=== PATIENT | female | born 1950 | race Caucasian/White ===

== ENCOUNTER → 2017-04-23 | Outpatient (CLI) | payer MEDICARE, OTHER ==
--- NOTE | 2017-04-23 14:11 | MRI ---
Study: MRI of the Cervical Spine. Indication: CERVICALGIA Technique: Multiplanar, multi sequence MRI of the cervical spine was obtained without intravenous contrast. Comparison: None. Findings: Vertebral body height maintained. No marrow infiltrating lesion. Spinal cord normal in caliber and signal. Straightening cervical spine. Levocurvature upper thoracic spine suspected. C2-3: Moderate bilateral facet arthrosis. No stenosis. C3-C4: Mild disc space height loss and disc desiccation. 3.5 mm right eccentric disc bulge producing mild spinal canal narrowing, mid sagittal thecal sac diameter 9 mm. Moderate bilateral facet arthrosis with prominent right and mild left uncovertebral hypertrophy. Moderate to severe right and [id number] left neural foraminal narrowing. C4-C5: Moderate to severe disc space height loss and disc desiccation with a 3 mm disc bulge closely approximating the ventral spinal cord. Mild to moderate spinal canal narrowing, macrocephalic 8 mm. Moderate bilateral facet arthrosis and uncovertebral hypertrophy with moderate right and mild to moderate left neural foraminal narrowing. C5-C6: Moderate to severe disc space height loss and disc desiccation with 4 mm disc osteophyte complex producing mild to moderate spinal canal narrowing, mid sagittal thecal sac diameter 7.5 mm. Moderate right and mild left facet arthrosis and prominent bilateral uncovertebral hypertrophy. Severe bilateral neural foraminal narrowing. C6-C7: Moderate to severe disc space height loss and disc desiccation with a 3 mm right eccentric disc bulge. Mild spinal canal narrowing, mid sagittal thecal sac diameter 9 mm. Moderate left and mild right facet arthrosis and moderate bilateral uncovertebral hypertrophy. Moderate to severe left and moderate right neural foraminal narrowing. C7-T1: Moderate to severe disc space height loss and disc desiccation 3.5 mm left eccentric disc osteophyte complex with mild spinal canal narrowing, mid sagittal thecal sac diameter 9 mm. Mild bilateral facet arthrosis and moderate bilateral uncovertebral hypertrophy with mild to moderate bilateral neural foraminal narrowing. Impression: Multilevel cervical disc disease most pronounced at C5-C6 where there is mild to moderate spinal canal narrowing and severe bilateral neural foraminal narrowing. Additional findings as above. Electronically signed by: Niko Salazar MD 04/23/2017 2:10 PM CDT Workstation: [id number]
--- NOTE | 2017-04-23 14:35 | MRI ---
Study: MRI of the Lumbar Spine. Indication: LOW BACK PAIN Technique: Multiplanar, multi sequence MRI of the lumbar spine was obtained without intravenous contrast. Comparison: None. Findings: The designated L5-S1 disc space level is visualized on axial T2 image 3. Vertebral body height maintained. Conus medullaris unremarkable. L1-L2: Unremarkable L2-L3: Moderate to severe disc space height loss and disc desiccation with patchy Modic type II endplate changes and anterior osteophyte formation. 4 mm left eccentric disc bulge. No stenosis. Mild bilateral facet arthrosis. L3-L4: Moderate to severe disc space height loss and disc desiccation with a 4 mm left eccentric disc bulge and moderate bilateral facet arthrosis. Mild right and moderate left lateral recess narrowing. No spinal canal narrowing or neural foraminal narrowing. L4-L5: Trace retrolisthesis. Moderate to severe posterior disc space height loss and disc desiccation. 5 mm disc bulge and moderate bilateral facet arthrosis. Indentation ventral thecal sac with moderate spinal canal narrowing, mid sagittal thecal sac diameter 7 mm. Moderate ligament flavum buckling. No neural foraminal narrowing. Moderate bilateral lateral recess narrowing. L5-S1: Moderate to severe disc space height loss and disc desiccation with a 3.5 mm disc osteophyte complex and moderate bilateral facet arthrosis. Mild bilateral lateral recess narrowing. No spinal canal narrowing or neural foraminal narrowing. Impression: Multilevel lumbar disc disease most pronounced at L4-L5 where there is moderate spinal canal narrowing and moderate bilateral lateral recess narrowing. Additional findings as above. Electronically signed by: Niko Salazar MD 04/23/2017 2:34 PM CDT Workstation: [id number]
== END | disposition home or self-care (01) ==
LOC: MRI 10:13
PROVIDERS: ATTEND Nurse Practitioner Family
DX: M54.5 Low back pain (principal); M54.2 Cervicalgia

== ENCOUNTER → 2017-05-03 | Outpatient (CLI) | payer MEDICARE, OTHER ==
--- NOTE | 2017-05-03 10:35 | CT ---
EXAM DESCRIPTION: CTA Chest CLINICAL HISTORY: 67 years, Female, ABN CXR COMPARISON: None TECHNIQUE: Rapid bolus administration of nonionicIV contrast was performed with thin-section axial scanning of the chest performed in a dynamic fashion. Reconstructed multiplanar and three dimensional MIP and VRT images created on a separate dedicated workstation were reviewed along with the source axial images and stored in the patient's medical record. This exam was performed according to our departmental dose-optimization program, which includes automated exposure control, adjustment of the mA and/or kV according to patient size and/or use of iterative reconstruction technique. FINDINGS: The lung joy are clear with mild dependent atelectasis in each posterior lower lung field without pleural effusions or dense consolidation. No pneumothorax or hemopneumothorax is noted. Bilateral breast implants overlie the anterolateral chest on each side. Small calcified granuloma in the peripheral right upper lobe is noted. Small granulomas on the left are noted as well. No evidence of filling defect or pulmonary embolus involving the right or left lung is seen and no pulmonary mass or consolidation is noted. Visualized hilar and mediastinal structures as well as the chest wall is otherwise unremarkable. IMPRESSION: 1. Negative CT pulmonary angiogram for pulmonary embolus. No filling defect or occlusive changes seen. 2. Small granulomatous calcifications in the both lung joy are benign in appearance and no further evaluation is noted. 3. Bilateral intact breast implants. 4. Essentially clear lung joy with mild dependent compressive atelectasis in each posterior lung base. Electronically signed by: Aramis Fernandez MD 05/03/2017 10:35 AM CDT
== END | disposition home or self-care (01) ==
LOC: CT 08:39
PROVIDERS: ATTEND Family Medicine
DX: R09.89 Other specified symptoms and signs involving the circulatory and respiratory systems (principal)

== ENCOUNTER 2017-07-30 15:28 | Emergency (ER) | payer MEDICARE, OTHER ==
--- NOTE | 2017-07-30 15:59 | ED.PDOC ---
History of Present Illness - General Time Seen by Provider: 07/30/17 15:36 Source: patient Exam Limitations: no limitations - History of Present Illness Initial Comments: the patient is a 67-year-old female presenting to the emergency room secondary to swelling over her left patella present for the last few days. She did fall about a week ago and had some generalized swelling of the knee that has since largely resolved. No significant pain with movement at this time. No erythema. No increased heat. Patellar tendon mechanism is working well. No difficulty with weightbearing. Timing/Duration: 1 week Severity: mild Improving Factors: nothing Worsening Factors: nothing Associated Symptoms: denies symptoms Review of Systems - Review of Systems Constitutional: States: no symptoms reported EENTM: States: no symptoms reported Respiratory: States: no symptoms reported Cardiology: States: no symptoms reported Gastrointestinal/Abdominal: States: no symptoms reported Genitourinary: States: no symptoms reported Musculoskeletal: States: see HPI Skin: States: no symptoms reported Neurological: States: no symptoms reported All other Systems: No Change from Baseline Physical Exam - Physical Exam General Appearance: Alert, Comfortable, No apparent distress Eye Exam: bilateral normal Ears, Nose, Throat: hearing grossly normal Neck: full range of motion Respiratory: no respiratory distress, no accessory muscle use Cardiovascular/Chest: normal peripheral pulses, no edema Peripheral Pulses: radial,right: 2+, radial,left: 2+, dorsalis pedis,right: 2+, dorsalis pedis,left: 2+ Rectal Exam: deferred Extremity: normal range of motion, non-tender, no pedal edema, no calf tenderness, normal capillary refill, other - left side there is some prepatellar bursa swelling Neurologic: no motor/sensory deficits, alert, normal mood/affect, oriented x 3 Skin Exam: normal color Progress - Progress Progress: 07/30/17 15:57 the patient is a 67-year-old female with left sided patellar bursitis. This is likely traumatic bursitis. I do not see any evidence of infection. Oral anti-inflammatories can be used as needed. ER warnings are given for any evidence of infection. 07/30/17 15:59 Departure - Departure Clinical Impression: Bursitis Qualifiers: Bursitis location: knee Knee bursitis location: prepatellar bursitis Laterality : left Qualified Code(s): M70.42 - Prepatellar bursitis, left knee Disposition: Discharge to Home or Self Care Condition: Fair Instructions: DI for Bursitis Diet: regular diet Activity: increase activity as tolerated Referrals: Aramis Mohr MD [Primary Care Provider] - 1-2 Weeks Additional Instructions: the patient is a 67-year-old female with left sided patellar bursitis. This is likely traumatic bursitis. I do not see any evidence of infection. Oral anti-inflammatories can be used as needed. ER warnings are given for any evidence of infection.
[2017-07-30 16:32] VITALS: BP 113/72; TEMP 98.5; O2SAT 96
== END 2017-07-30 16:20 | disposition home or self-care (01) ==
LOC: ER 15:28
DX: M70.42 Prepatellar bursitis, left knee (principal)

== ENCOUNTER → 2017-08-16 | Outpatient (CLI) | payer MEDICARE, OTHER | END | disposition home or self-care (01) | LOC: MAMMO 13:05 | PROVIDERS: ATTEND Family Medicine | DX: Z12.31 Encounter for screening mammogram for malignant neoplasm of breast (principal) | CPT/HCPCS: 77063; G0202 ==

== ENCOUNTER → 2017-10-09 | Outpatient (CLI) | payer MEDICARE, OTHER | END | disposition home or self-care (01) | LOC: GMAM 10:39 | PROVIDERS: ATTEND Family Medicine | DX: E03.9 Hypothyroidism, unspecified (principal); E55.9 Vitamin D deficiency, unspecified ==

== ENCOUNTER → 2018-04-24 | Outpatient (CLI) | payer MEDICARE, OTHER | LOC: GMAM 11:07 | PROVIDERS: ATTEND Family Medicine | DX: E03.9 Hypothyroidism, unspecified (principal); E55.9 Vitamin D deficiency, unspecified ==

== ENCOUNTER → 2018-08-12 | Outpatient (CLI) | payer MEDICARE, OTHER ==
--- NOTE | 2018-08-12 21:00 | MRI ---
EXAM DESCRIPTION: Lumbar Spine w/o Contrast : Magnetic Resonance Imaging. CLINICAL HISTORY: LUMBAR STENOSIS COMPARISON: MRI scan lumbar spine without contrast 04/23/2017. TECHNIQUE: Multiplanar, multiple standard sequences, non contrast MRI, lumbar spine. FINDINGS: L5-S1: Moderate disc space loss. Disc desiccation. Diffuse Modic type I endplate reactive changes in the midline into the left of midline. Tiny posterior bulge. Moderate hypertrophy of the flavum ligaments and facet arthrosis impressing on the thecal sac with moderate canal narrowing. Bilateral mild foraminal narrowing. L4-5: Disc desiccation and mild to moderate disc space loss increasing from midline to the right with Modic type I endplate reactive changes. Posterior mild broad-based disc bulge with hyperintense T2 signal annular fissure in the midline. Disc osteophyte complex bulge to the right with minimal foraminal narrowing. Moderate flavum ligament hypertrophy and facet arthrosis resulting in moderate to severe canal narrowing. Left foramen patent. L3-4: Moderate disc space loss more to the left of midline. Schmorl's node in the superior L4 endplate. Anterior disc bulge and marginal spurs. Posterior mild broad-based bulge. Moderate flavum ligament hypertrophy and facet arthrosis with mild to moderate canal narrowing. Bilateral foramina are patent. L2-3: Disc desiccation and moderate disc space loss to the left of midline with Modic type II endplate reactive changes disc osteophyte bulge anteriorly and to the left of midline with narrowing of the foramen. Posterior broad-based bulge. Posterior elements unremarkable. No significant canal narrowing. Schmorl's node in the superior L3 endplate. L1-2: Normal signal in the disc with disc space preserved. Posterior elements unremarkable. Canal and foramina are patent. Conus terminates at this level. T12-L1: Disc space preserved with normal signal in the disc. Canal and foramina are patent. Posterior elements are unremarkable. Focal areas of hyperintense T1 and T2 signal in the L1 and T12 vertebral bodies. L3-L5 levoscoliosis. T12-L2 dextroscoliosis less curvature. Reduced lumbar lordosis. Paravertebral soft tissues paraspinal muscle atrophy.. Otherwise normal marrow signal in the remaining vertebral bodies and the posterior elements. Vertebral bodies are not compressed at any level. IMPRESSION: 1. Multiple levels of flavum ligament hypertrophy and facet arthrosis, desiccated disc with bulging, anterior and unilateral spondylosis, and Schmorl's nodes. Multiple hemangiomas. Left lower lumbar scoliosis. Multiple levels of foraminal narrowing with no stenosis. No change since the prior study. 2. L4-5 disc with posterior annular fissure in the midline. Moderate to severe canal narrowing. Stable since the prior study. Electronically signed by: Kevin Clark MD 08/12/2018 8:59 PM CDT
--- NOTE | 2018-08-12 21:30 | MRI ---
EXAM DESCRIPTION: Cervical Spine high-field MRI CLINICAL HISTORY: CERVICAL STENOSIS COMPARISON: MRI cervical spine without contrast 04/23/2017. TECHNIQUE: Multiplanar MRI, multiple sequences, non-contrast High-field.. Cervical spine FINDINGS: C3-4: Disc desiccation with anterior bulging and spurs. Modic type II endplate reactive changes superiorly. Posterior midline disc bulge abutting the cord. Moderate canal narrowing. Right uncinate spur and neural foraminal stenosis. Left uncinate spur and moderate neural foraminal narrowing. Facets are negative. C4-5: Moderate disc space loss anterior bulging and spurs with disc desiccation. Posterior midline disc osteophyte bulge abutting the cord with borderline canal stenosis. Bilateral uncinate spurs and mild neural foraminal narrowing. Facets negative. C5-6: Disc desiccation moderate disc space loss. Anterior disc bulging and spurs. Posterior midline disc osteophyte bulge abutting the midline and right paracentral cord with mild canal stenosis. Right uncinate spur with neural foraminal stenosis. Left uncinate spur and mild neural foraminal narrowing. Bilateral facets are negative. C6-7: Disc desiccation and minimal disc space loss. Modic type II endplate reactive changes to the right of midline. Modic type III endplate reactive changes to the left of midline. Facet arthrosis more on the left than the right. Bilateral moderate foraminal narrowing more on the left. C7-T1: Modic type II endplate reactive changes, more to the left of midline. Posterior broad-based disc bulge abutting the cord. Mild to moderate canal narrowing. Uncinate spurs larger on the right than the left. Moderate right neural foraminal narrowing and mild left neural foraminal narrowing. T1-T2: Disc desiccation with posterior broad-based bulge. Bulge into the right foramen with mild to moderate narrowing. Mild canal narrowing. Left neuroforamen patent. Bilateral facets are negative. Normal signal in the C2-C3 disc with no bulging. Disc spaces preserved. Canal and neural foramina are patent. Facets are unremarkable. Spinal alignment shows kyphosis. Minimal cervical dextroscoliosis upper thoracic levoscoliosis.. No cord compression or cord edema. Atlantoaxial joint minimal arthrosis with stable hemangioma in the odontoid process.. Base of the cerebellar tonsils is at the level of the foramen magnum. Paravertebral soft tissues demonstrate normal-sized lymph nodes.. Vertebral bodies are not compressed at any level. Normal marrow signal in the remaining vertebral bodies and the posterior elements. IMPRESSION: 1. Multiple levels of spondylosis, disc degeneration and bulging, uncinate spur hypertrophy. 2. C3-4 with spondylosis posterior midline disc bulge. Right uncinate spur and neural foraminal stenosis. No change from the prior study. 3. Posterior bulging C4-5 disc and endplate marginal spurs resulting in borderline mild central canal stenosis. This is stable since the prior study. 4. Right uncinate spur and neural foraminal stenosis at C5-6. Disc osteophyte bulge to the right of midline abutting and possibly compressing the right paracentral cord with mild right paracentral canal stenosis. Unchanged since the prior study. 5. Bilateral spondylosis at C6-7 more prominent to the left of midline. No canal or neural foraminal stenosis. Electronically signed by: Kevin Clark MD 08/12/2018 9:28 PM CDT
== END ==
LOC: MRI 10:34
PROVIDERS: ATTEND Family Medicine
DX: M48.02 Spinal stenosis, cervical region (principal); M47.892 Other spondylosis, cervical region; M50.21 Other cervical disc displacement, high cervical region; M50.220 Other cervical disc displacement, mid-cervical region, unspecified level; M48.061 Spinal stenosis, lumbar region without neurogenic claudication; M51.46 Schmorl's nodes, lumbar region; M51.26 Other intervertebral disc displacement, lumbar region; D18.09 Hemangioma of other sites

== ENCOUNTER → 2018-10-01 | Outpatient (CLI) | payer MEDICARE, OTHER ==
--- NOTE | 2018-10-01 18:39 | MAM ---
EXAM DESCRIPTION: 3D Screening BILATERAL : Digital Mammography. CLINICAL HISTORY: 68 years Female SCREENING . No complaints. Remote family history of breast cancer. Mother with ovarian cancer. Childbirth. Postmenopausal. No HRT. Bilateral breast augmentation. Lifetime risk of developing breast cancer (Tyrer-Cuzick model)(%): 6.4. COMPARISON: Bilateral screening digital breast tomosynthesis 08/16/2017. TECHNIQUE: Bilateral CC and MLO projection full-field images, with Jose Implant Displacement digital tomosynthesis mammographic technique. Bilateral 2-D digital full-field images, MLO and CC projections, non-displaced. CAD Bilateral digital 2-D full-field MLO images. CAD not available for tomosynthesis or 2-D images. FINDINGS: The breast parenchymal density pattern is: Heterogeneously dense breast tissue, which may obscure small masses. No skin thickening or nipple retraction. Skinfold with depression lateral to the right nipple on the CC implant displaced view is stable. Bilateral saline intramuscular implants appear stable with capsules intact where seen. No new focal, stellate mass or density, focal asymmetry , and no suspicious microcalcifications bilaterally. Stable mammograms compared to prior study. IMPRESSION: Benign exam. BIRAD CATEGORY: 2 BENIGN FINDINGS. RECOMMENDATIONS: FOLLOW UP: Routine digital bilateral mammographic screening, one year interval from September 2018. Written communication explaining the IMPRESSION and follow-up, will be mailed to the patient and referring health care provider. According to the [employer], yearly mammograms are recommended starting at age 40 and continuing as long as a woman is in good health. Any breast change noted on a breast self-exam should be reported promptly to the patient's healthcare provider. Breast MRI is recommended for women with an approximately 20-25% or greater lifetime risk of breast cancer, including women with a strong family history of breast or ovarian cancer and women who have been treated for Hodgkin's disease. A negative mammographic report should not delay tissue diagnosis in patients with significant clinical history or physical findings. Extremely dense breast tissue limits the sensitivity of digital mammography. Electronically signed by: Kevin Clark MD 10/01/2018 6:38 PM [facility]
== END ==
LOC: MAMMO 12:05
PROVIDERS: ATTEND Family Medicine
DX: Z12.31 Encounter for screening mammogram for malignant neoplasm of breast (principal)